=== PATIENT | female | born 1945 | race Caucasian/White ===

== ENCOUNTER 2017-06-14 12:28 | Emergency (ER) | payer MEDICAID, MEDICARE ==
[2017-06-14] MEDS ORDERED: Promethazine HCl 25 MG/ML VIAL ONE (13:26)
[2017-06-14] MEDS ORDERED: Sodium Chloride 0.9% 100 ML BAG ONE (13:35)
[2017-06-14 13:37] LABS: #Lymphocytes 0.5 thou/uL (1.20-3.40); #Monocytes 0.3 thou/uL (0.11-0.59); #Neutrophils 7.6 thou/uL (1.40-6.50); %Basophils 0.5 % (0.0-1.0); %Eosinophils 0.3 % (0.0-10.0); %Lymphocytes 5.9 % (21.0-51.0); %Monocytes 3.1 % (0.0-10.0); %Neutrophils 90.2 % (42.0-75.0); Hemoglobin 11.1 g/dL (12.0-16.0); Mean Corpuscular HGB CONC 32.2 g/dL (32.0-36.0); Mean Corpuscular Hemoglobin 29.5 pg (27.0-31.0); Mean Corpuscular Volume 91.7 fl (81.0-99.0); Mean Platelet Volume 6.9 fL (7.4-10.4); Platelet Count 188 thou/uL (130-400); RBC Distribution Width 13.5 % (11.5-14.5); Red Blood Cell (RBC) Count 3.74 mill/uL (4.20-5.40); White Blood Cell (WBC) Count 8.4 thou/uL (4.8-10.8)
[2017-06-14 13:42] LABS: ALT (SGPT) 19 U/L (8-55); AST (SGOT) 22 U/L (5-34); Albumin 4.4 g/dL (3.4-4.8); Alkaline Phosphatase 107 U/L (40-150); Anion Gap 16 mmol/L (10-20); BUN (Urea Nitrogen) 21 mg/dL (9.8-20.1); Bilirubin, Total 0.4 mg/dL (0.2-1.2); Calc. Creatinine Clearance 0 mL/min (70-130); Calcium 10.1 mg/dL (7.8-10.44); Carbon Dioxide 22 mmol/L (23-31); Chloride 103 mmol/L (98-107); Digoxin 0.95 ng/mL (0.8-2.0); Estimated GFR-MDRD 47; Globulin 3.5 g/dL (2.4-3.5); Glucose 206 mg/dL (83-110); Lipase 48 U/L (8-78); Potassium 4.4 mmol/L (3.5-5.1); Protein, Total 7.9 g/dL (6.0-8.3); Sodium 137 mmol/L (136-145)
[2017-06-14 13:52] LABS: Bilirubin Negative (Negative); Blood, Urine Large (Negative); Clarity Hazy (Clear); Glucose, Urine (Dipstick) Negative (Negative); Leukocyte Negative (Negative); Nitrite Negative (Negative); Protein, Urine (Dipstick) Negative (Neg-Trace); Urobilinogen 0.2 mg/dL (0.2-1.0); WBC/HPF None Seen HPF (0-3)
[2017-06-14 13:53] LABS: Bacteria/HPF Rare-Few HPF (None Seen); Squamous Epithelial 0-3 HPF (0-3)
[2017-06-14 14:04] LABS: INR-International Normal Ratio 2.4; Prothrombin Time 27.5 SEC (12.0-14.7)
[2017-06-14 14:05] LABS: PTT 42.1 SEC (22.9-36.1)
--- NOTE | 2017-06-14 14:45 | CT ---
CT OF THE ABDOMEN AND PELVIS PERFORMED WITHOUT CONTRAST ENHANCEMENT: History: Left flank pain. FINDINGS: The lung bases show linear scar in the left base. The liver, spleen, pancreas and gallbladder regions appear unremarkable. Right and left adrenal glands are normal in size and appearance. The right and left kidneys are norm al in size. There is a lower pole left renal calculus that measures 6 mm with several other smaller punctate calcifications. There is mild dilatation of the left collecting system with some ureteral f at stranding and some mild dilatation of the left ureter which is related to a 4 mm calculus located at the left ureterovesical junction. It appears to be almost be expelled into the bladder versus be ing in the intramural portion of the ureter. There is no significant periaortic or mesenteric adenop athy. CT OF PELVIS PERFORMED WITHOUT CONTRAST ENHANCEMENT: Moderate sigmoid diverticulosis is noted. No adenopathy or mass. IMPRESSION: 1. Left sided renal calculi with left sided hydronephrosis and hydroureter related to an approximate ly 4 mm calculus located at the left ureterovesical junction. Possibly this calculus is expelled int o the bladder. 2. Fairly pronounced sigmoid diverticulosis. POS: [facility]
[2017-06-14] MEDS ORDERED: Nitrofurantoin Monohyd/M-Cryst 100 MG CAP ONE (15:38)
[2017-06-14] MEDS ORDERED: Clindamycin 150 MG CAP ONE ×2 (15:38)
== END 2017-06-14 15:50 | disposition home or self-care (01) ==
LOC: MADERS 12:28
DX: N13.2 Hydronephrosis with renal and ureteral calculous obstruction (principal); E03.9 Hypothyroidism, unspecified; E11.9 Type 2 diabetes mellitus without complications; E78.5 Hyperlipidemia, unspecified; F41.9 Anxiety disorder, unspecified; J45.909 Unspecified asthma, uncomplicated; I49.9 Cardiac arrhythmia, unspecified; I11.0 Hypertensive heart disease with heart failure; I50.9 Heart failure, unspecified; I48.91 Unspecified atrial fibrillation; I25.10 Atherosclerotic heart disease of native coronary artery without angina pectoris; Z79.51 Long term (current) use of inhaled steroids; Z79.899 Other long term (current) drug therapy; Z79.82 Long term (current) use of aspirin; Z79.01 Long term (current) use of anticoagulants
CPT/HCPCS: 51701; 74176; 80053; 80162; 81001; 82150; 83690; 85025; 85610; 85730; 87086; 96374; A4353; J2270; J2550; J7050